=== PATIENT | female | born 1985 | race Two or more races ===

== ENCOUNTER → 2020-06-19 12:07 | Outpatient (CLI) | payer MEDICAID | END | disposition home or self-care (01) | LOC: D.US 12:00 | PROVIDERS: ATTEND Obstetrics & Gynecology Gynecology | DX: O09.90 Supervision of high risk pregnancy, unspecified, unspecified trimester (principal); Z3A.00 Weeks of gestation of pregnancy not specified ==

== ENCOUNTER → 2020-08-07 12:02 | Outpatient (CLI) | payer MEDICAID | END | disposition home or self-care (01) | LOC: D.US 12:00 | PROVIDERS: ATTEND Obstetrics & Gynecology Gynecology | DX: O28.3 Abnormal ultrasonic finding on antenatal screening of mother (principal); O35.0XX0 Maternal care for (suspected) central nervous system malformation in fetus, not applicable or unspecified ==